=== PATIENT | female | born 2000 | race Caucasian/White ===

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

== ENCOUNTER 2022-06-23 21:04 | Emergency (ER) | payer MEDICAID, SELFPAY ==
[2022-06-23 21:05] VITALS: TEMP 36.7; BMI 32.4
[2022-06-23 21:28] LABS: Basophils # 0.1 10^3/uL (0.0-0.1); Basophils % 0.7 %; Eosinophils # 0.3 10^3/uL (0.0-0.8); Eosinophils % 2.7 %; Hematocrit 42.3 % (37.0-47.0); Hemoglobin 13.5 g/dL (11.5-15.3); Lymphocytes # 3.1 10^3/uL (1.5-6.5); Lymphocytes % 31.4 %; Mean Corpuscular HGB Conc 31.9 g/dL (30.0-36.0); Mean Corpuscular Hemoglobin 27.8 pg (28.0-34.0); Mean Corpuscular Volume 87.2 fl (81-99); Mean Platelet Volume 10.7 fL (7.4-10.4); Monocytes # 0.8 10^3/uL (0.2-0.9); Monocytes % 8.2 %; Neutrophils # 5.62 10^3/uL (1.8-8.0); Neutrophils % 56.7 %; Nucleated Red Blood Cells % 0 %; Platelet Count 343 10^3/cmm (130-400); Red Blood Count 4.85 10^6/uL (4.1-5.3); Red Cell Distribution Width 12.1 % (12.1-15.1); White Blood Count 9.9 10^3/uL (4.5-13.0)
[2022-06-23 21:38] LABS: Add Urine Microscopic? NO; Charge for UA Resulting for Rev
[2022-06-23 21:41] VITALS: BP 116/85; PULSE 100; RESP 16; O2SAT 99
[2022-06-23 21:45] LABS: Alanine Aminotransferase 49 U/L (0-33); Albumin Level 4.9 g/dL (3.5-5.2); Alkaline Phosphatase 122 U/L (35-105); Anion Gap 16.8 (5-19); Aspartate Amino Transferase 37 U/L (0-32); Blood Urea Nitrogen 13 mg/dL (6-20); Calcium 9.6 mg/dL (8.5-10.5); Carbon Dioxide 25 mmol/L (22-29); Chloride 101 mmol/L (98-107); Globulin 3.2 g/dL (1.3-4.6); Glomerular Filtration Rate 127.5 mL/min (90-130); Glucose 119 mg/dL (65-115); Lipase 35 U/L (13-60); Osmolality Calculated 289 mOsm/kg (285-295); Potassium 3.8 mmol/L (3.5-5.1); Sodium 139 mmol/L (136-145); Total Bilirubin 0.5 mg/dL (0.15-1.2); Total Protein 8.1 g/dL (6.6-8.7)
--- NOTE | 2022-06-23 21:47 | ED_ITS ---
HPI - Abdominal Pain General: Chief Complaint: Abdominal Pain Stated Complaint: Rt Lower ABD Pain Time Seen by Provider: 06/23/22 21:12 Source: patient and family Mode of arrival: ambulatory Limitations: no limitations History of Present Illness: Patient presents to the emergency department today accompanied by her mother for evaluation treatment of complaints of right-sided abdominal and flank pain starting tonight. Patient states she got home from religious and was using the restroom like normal when she had the urge to stool and passed a small amount of diarrhea. She states while having the diarrhea she had sudden onset of right-sided abdominal and flank pain. Patient states the pain is worse when she is laying back but feels the pain consistently. Patient denies any nausea or vomiting but has felt warm tonight. No other similarly ill with GI symptoms at home. Patient denies any dysuria or hematuria. She has no previous history of ovarian cyst. Patient does still have her gallbladder. Mom reports a history of gallbladder disease and appendicitis in the family and mother has ovarian cyst. Patient states that she has been passing diarrhea the last week or so with her bowel movements. Associated Symptoms: Reports diarrhea Review of Systems General: Reports: 10 or more systems reviewed and unremarkable except in HPI and below GI: Reports: abdominal pain and diarrhea PFSH ED PFSH: Medical History No significant past medical history Surgical History No significant past surgical history Family History Denies family history of Family history of premature coronary artery disease Social History Smoking and tobacco status: never smoked Physical Exam Const: COMMON NORMALS: no acute distress, patient oriented x3 and alert (alert but slowed, slowed speech and eyes half opened) HENMT: COMMON NORMALS: normocephalic, atraumatic, hearing grossly normal bilaterally and moist oral mucous membranes HEAD & SCALP: normocephalic and atraumatic Eye: COMMON NORMALS: Equal, round and reactive pupils present, EOMs intact bilaterally and conjunctivae normal CONJUNCTIVA: Yes conjunctivae normal PUPIL: Yes Equal, round and reactive pupils present Neck/C-Spine: COMMON NORMALS: full ROM and no JVD Lymph: LYMPHATIC: no lymphadenopathy noted Resp: COMMON NORMALS: normal respiratory effort, No retractions, No use of accessory muscles and clear to auscultation bilaterally AUSCULTATION: clear to auscultation bilaterally Cardio: COMMON NORMALS: no JVD, regular rate and regular rhythm RATE: regular rate RHYTHM: regular rhythm GI: OTHER: Diminished bowel sounds in all 4 quadrants. Patient with abdominal pain to right mid, lateral abdominal pain and right-sided flank pain. : COMMON NORMALS: No no CVA tenderness (Right-sided CVA tenderness) BLADDER/KIDNEY EXAM: No no CVA tenderness (Right-sided CVA tenderness) Back/Pelvis: COMMON NORMALS: no thoracic nor lumbar tenderness and thoraco- lumbar ROM normal; negative for no CVA tenderness (Right-sided CVA tenderness) Extremity: COMMON NORMALS: normal to inspection, full ROM and capillary refill normal Neuro: COMMON NORMALS: patient oriented x3 SENSORIUM/ORIENTATION: Yes alert (alert but slowed, slowed speech and eyes half opened) Psych: COMMON NORMALS: mental status grossly normal, Normal thought process present, cooperative, normal affect and activity/motor behavior normal THOUGHT PROCESS: Normal thought process present Skin: COMMON NORMALS: no rashes or lesions noted and no wounds GENERAL SKIN EXAM: no rashes or lesions noted Course Vital Signs: Vital signs: Vital Signs Temperature 98.1 F 06/23/22 21:05 Pulse Rate 77 06/23/22 23:10 Respiratory Rate 14 06/23/22 23:10 Blood Pressure 141/70 06/23/22 23:10 Pulse Oximetry 100 06/23/22 23:10 Oxygen Delivery Me thod 06/23/22 21:05 MDM - Abdominal Pain Medical Decision Making Patient presented today with various complaints of diarrhea today and for the last several days with sudden onset of a right lateral and right flank pain. Patient's lab work was otherwise unremarkable except a mildly elevated LFT. Mom reports a history of gallbladder issues. KUB was negative for any significant constipation and ultrasound revealed no signs of cholelithiasis or cholecystitis. Patient was treated with Bentyl here in the emergency department but was not experiencing nausea or vomiting and did not require any antiemetics. Patient is tolerating p.o. intake. At this time, I do not think it is related to her ovaries as the location of her pain is different than her right lower quadrant/suprapubic region. Patient most likely has a slight stomach virus given the several days of diarrhea she has been complaining of and crampy right- sided abdominal pains. However, she was instructed to watch for any change in the location of her pain, change in the quality of her pain, any new onset of fever, new onset of vomiting, or diarrhea that turns black and tarry or has bright red blood in it. She is to be seen and reevaluated if this occurs. Differential Diagnosis Likely abdominal pain (cholecystitis, cholelithiasis), acute appendicitis, calculus of kidney, constipation, gastroenteritis and pancreatitis Lab Data 06/23/22 21:20 06/23/22 21:20 Labs/Radiology: Radiology Impressions Gallbladder Ultrasound 06/23/22 22:03 IMPRESSION: 1. No evidence of cholelithiasis or acute cholecystitis. 2. Normal sonographic appearance of the liver. 3. Normal common bile duct. 4. No right hydronephrosis. KUB X-Ray 06/23/22 22:03 IMPRESSION: No acute findings. Laboratory Results WBC 9.9 10^3/uL (4.5-13.0) 06/23/22 21:20 RBC 4.85 10^6/uL (4.1-5.3) 06/23/22 21:20 Hgb 13.5 g/dL (11.5-15.3) 06/23/22 21:20 Hct 42.3 % (37.0-47.0) 06/23/22 21:20 MCV 87.2 fl (81-99) 06/23/22 21:20 MCH 27.8 pg (28.0-34.0) L 06/23/22 21:20 MCHC 31.9 g/dL (30.0-36.0) 06/23/22 21:20 RDW 12.1 % (12.1-15.1) 06/23/22 21:20 Plt Count 343 10^3/cmm (130-400) 06/23/22 21:20 MPV 10.7 fL (7.4-10.4) H 06/23/22 21:20 Neut % (Auto) 56.7 % 06/23/22 21:20 Lymph % (Auto) 31.4 % 02/15/23 21:20 [place] % (Auto) 8.2 % 06/23/22 21:20 Eos % (Auto) 2.7 % 06/23/22 21:20 Baso % (Auto) 0.7 % 06/23/22 21:20 Neut # (Auto) 5.62 10^3/uL (1.8-8.0) 06/23/22 21:20 Lymph # (Auto) 3.1 10^3/uL (1.5-6.5) 06/23/22 21:20 [place] # (Auto) 0.8 10^3/uL (0.2-0.9) 06/23/22 21:20 Eos # (Auto) 0.3 10^3/uL (0.0-0.8) 06/23/22 21:20 Baso # (Auto) 0.1 10^3/uL (0.0-0.1) 06/23/22 21:20 Nucleated RBC % (auto) 0 % 06/23/22 21: Nucleated RBCs # 0.0 /100WBC 06/23/22 21:20 Sodium 139 mmol/L (136-145) 06/23/22 21:20 Potassium 3.8 mmol/L (3.5-5.1) 06/23/22 21:20 Chloride 101 mmol/L (98-107) 06/23/22 21:20 Carbon Dioxide 25 mmol/L (22-29) 06/23/22 21:20 Anion Gap 16.8 (5-19) 06/23/22 21:20 BUN 13 mg/dL (6-20) 06/23/22 21:20 Creatinine 0.6 mg/dL (0.5-0.9) 06/23/22 21:20 GFR Calculation 127.5 mL/min (90-130) 06/23/22 21:20 Glucose 119 mg/dL (65-115) H 06/23/22 21:20 Calculated Osmolality 289 mOsm/kg (285-295) 06/23/22 21:20 Calcium 9.6 mg/dL (8.5-10.5) 06/23/22 21:20 Total Bilirubin 0.5 mg/dL (0.15-1.2) 06/23/22 21:20 AST 37 U/L (0-32) H 06/23/22 21:20 ALT 49 U/L (0-33) H 06/23/22 21:20 Alkaline Phosphatase 122 U/L (35-105) H 06/23/22 21:20 C-Reactive Protein 3.0 mg/L (0.0-4.9) 06/23/22 21:20 Total Protein 8.1 g/dL (6.6-8.7) 06/23/22 21:20 Albumin 4.9 g/dL (3.5-5.2) 06/23/22 21:20 Globulin 3.2 g/dL (1.3-4.6) 06/23/22 21: Lipase 35 U/L (13-60) 06/23/22 21:20 Urine Color Yellow (Yellow) 06/23/22 21:26 Urine Appearance Clear (CLEAR) 06/23/22 21:26 Urine pH 6 (5-7) 06/23/22 21:26 Ur Specific [place] 1.020 (1.005-1.030) 06/23/22 21:26 Urine Protein Neg (Negative) 06/23/22 21:26 Urine Glucose (UA) Norm (Normal) 06/23/22 21:26 Urine Ketones Negative (Negative) 06/23/22 21: Urine Blood Neg (Negative) 06/23/22 21: Urine Nitrate Negative (Negative) 06/23/22 21:26 Urine Bilirubin Neg (Negative) 06/23/22 21:26 Urine Urobilinogen Norm mg/dL (Negative) 06/23/22 21:26 Ur Leukocyte Esterase Negative (Negative) 06/23/22 21:26 Urine HCG, Qual Negative (Negative) 06/23/22 21:26 Discharge Plan Discharge Patient Disposition: Home Clinical Impression: Gastroenteritis Condition: Stable Prescriptions: New dicyclomine 10 mg capsule 10 mg PO TID Qty: 14 0RF No Action omeprazole 10 mg Capsule,Delayed Release(Dr/Ec) 10 mg PO DAILY Discharge Orders: Discharge ED (Routine); Ordered 06/24/22 Ordered By: Anitha Bo Discharge Diet: As Directed Discharge Activity: Resume usual activity Patient Instructions: Acute Diarrhea (ED), Abdominal Pain (ED) Activity Restrictions/Additional Instructions: Lab work was otherwise unremarkable except a slight elevation in your liver function test. Evaluation of your gallbladder showed no signs of any wall thickening, inflammation, or concerns for gallstones. Abdominal x-ray does reveal stool throughout the colon however, does not appear to be a significant constipation type pattern and, with your passing of diarrhea over the last sev eral days, we will treat you for a gastroenteritis. Medication provided to help with crampy abdominal pains. We would like you to try this medication for the next couple of days to see how your symptoms improve. Will be very important that you stay well-hydrated. Avoid overly greasy or oily foods. Watch for any new onset of fevers, change of your abdominal pains, new onset of vomiting, or continued diarrhea with black or bloody stools. If any of these agree need to be seen and reevaluated. Coding Level of Care Code ED Fertilizer Processing Supervisor for Caron Guzman
[2022-06-23 21:48] LABS: Bilirubin Urine Neg (Negative); Blood Urine Neg (Negative); Glucose Urine UA Norm (Normal); Ketones Urine Negative (Negative); Leukocyte Esterase Urine Negative (Negative); Nitrate Urine Negative (Negative); Protein Urine Neg (Negative); Urine Appearance Clear (CLEAR); Urine Color Yellow (Yellow); Urobilinogen Urine Norm (Negative); pH Urine 6 (5-7)
--- NOTE | 2022-06-23 22:03 | XRR_ITS ---
PROCEDURE INFORMATION: Exam: XR Abdomen Exam date and time: 06/23/2022 10:08 PM Age: 22 years old Clinical indication: Abdominal pain; Generalized; Additional info: Diarrhea, right sided abdominal pain TECHNIQUE: Imaging protocol: Radiologic exam of the abdomen. Views: Frontal supine view of the abdomen. 1 View. COMPARISON: CR XR chest 1V portable [id number] 05/13/2021 5:32 AM FINDINGS: Gastrointestinal tract: Normal. No bowel dilation. Bones/joints: Unremarkable. Other findings: No suspicous calcifications. XR/XR KUB [id number] IMPRESSION: No acute findings.
--- NOTE | 2022-06-23 22:03 | USR_ITS ---
PROCEDURE INFORMATION: Exam: US Abdomen, Limited; Right Upper Quadrant Exam date and time: 06/23/2022 10:58 PM Age: 22 years old Clinical indication: Abdominal pain; Flank; Right upper quadrant (ruq); Patient HX: Diarrhea x 4 days normal tbili = 0.5, elevated ast = 37, elevated alt = 49, elevated alkphos = 122, normal lipase. ; Additional info: Right sided abd pain, diarrhea, slightly elevated lfts TECHNIQUE: Imaging protocol: Real time ultrasound of the abdomen with image documentation. Limited exam focused on the right upper quadrant. COMPARISON: CR (ABDOMEN, ) 06/23/2022 10:08 PM FINDINGS: Liver: The liver is normal in size, measuring 15.7 cm in length. It shows normal homogeneous echotexture. Gallbladder: The gallbladder is contracted following a recent meal. There are no shadowing gallstones. The gallbladder wall thickness is 2.7 mm. There is no pericholecystic fluid. The plane tender reports a negative Lobo's sign. Biliary ducts: The common bile duct measures 4 mm in diameter, normal. There are no dilated intrahepatic bile ducts. Pancreas: The pancreas is normal in size and echotexture. Right kidney: The right kidney measures 10.3 x 4.4 x 4.8 cm. Cortical thickness is 1.3 cm, within normal limits. There is no right hydronephrosis. Aorta: There is no abdominal aortic aneurysm. Portal venous: There is hepatopetal flow in the portal vein. Intraperitoneal space: No evidence of ascites. US/US gall bladder [id number] IMPRESSION: 1. No evidence of cholelithiasis or acute cholecystitis. 2. Normal sonographic appearance of the liver. 3. Normal common bile duct. 4. No right hydronephrosis.
[2022-06-23] MEDS: dicyclomine 20 mg Tablet PO (22:21)
[2022-06-23] MEDS: ketorolac 10 mg Tablet PO (22:21)
[2022-06-23 23:10] VITALS: BP 141/70; PULSE 77; RESP 14; O2SAT 100
[2022-06-24 00:45] VITALS: BP 132/67; PULSE 73; RESP 16; O2SAT 99
== END 2022-06-24 00:46 | disposition home or self-care (01) ==
PROVIDERS: Emergency Provider Physician Assistant
DX: K52.9 Noninfective gastroenteritis and colitis, unspecified (principal)
CPT/HCPCS: 74018; 76705; 80053; 81003; 81025; 83690; 85025; 86140; 99285